=== PATIENT | male | born 1955 | race African-American/Black ===

== ENCOUNTER 2017-10-27 08:31 | Emergency (ER) | payer OTHER ==
[2017-10-27 08:51] LABS: ADD MAN DIFF? NO
[2017-10-27 08:54] LABS: BASO # 0.1 x10^3/uL (0.0-0.2); BASO % 1 % (0-3); EOS # 0.2 x10^3/uL (0.0-0.7); EOS % 3 % (0-3); HEMATOCRIT 30.5 % (39.0-53.0); HEMOGLOBIN 9.8 g/dL (13.0-17.5); LYMPH # 1.1 x10^3/uL (1.0-4.8); LYMPH % 21 % (24-48); MEAN CORPUSCULAR HEMOGLOBIN 20 pg (25-35); MEAN CORPUSCULAR HGB CONC 32 g/dL (31-37); MEAN CORPUSCULAR VOLUME 63 fL (79-100); MONO # 0.8 x10^3/uL (0.0-1.1); MONO % 15 % (0-9); NEUT # 3.1 x10^3uL (1.8-7.7); NEUT % 60 % (31-73); PLATELET COUNT 51 x10^3/uL (140-400); RED BLOOD COUNT 4.83 x10^6/uL (4.30-5.70); RED CELL DISTRIBUTION WIDTH 22.9 % (11.5-14.5); WHITE BLOOD COUNT 5.1 x10^3/uL (4.0-11.0)
[2017-10-27 09:05] LABS: ANION GAP 9 (6-14); BLOOD UREA NITROGEN 10 mg/dL (8-26); CALCIUM 9.3 mg/dL (8.5-10.1); CARBON DIOXIDE 25 mmol/L (21-32); CHLORIDE 100 mmol/L (98-107); CREATININE 0.9 mg/dL (0.7-1.3); GFR 103.5; GLUCOSE 356 mg/dL (70-99); SODIUM 134 mmol/L (136-145)
[2017-10-27 09:10] LABS: ALBUMIN 2.6 g/dL (3.4-5.0); ALK PHOS 183 U/L (46-116); ALT (SGPT) 74 U/L (16-63); AST (SGOT) 71 U/L (15-37); BARBITURATES NEG (NEG); BENZODIAZEPINES NEG (NEG); CANNABINOIDS POS (NEG); COCAINE POS (NEG); DIRECT BILIRUBIN 0.6 mg/dL (0.0-0.2); LIPASE 452 U/L (73-393); MAGNESIUM 1.9 mg/dL (1.8-2.4); METHADONE NEG (NEG); OPIATES NEG (NEG); PHENCYCLIDINE NEG (NEG); TOTAL PROTEIN 7.7 g/dL (6.4-8.2)
[2017-10-27 09:14] LABS: TROPONINI < 0.017 ng/mL (0.000-0.055)
[2017-10-27 09:16] LABS: BACTERIA,URINE FEW /HPF (0-FEW); BILIRUBIN,URINE NEGATIVE (NEG); CLARITY,URINE CLOUDY; COLOR,URINE YELLOW; GLUCOSE,URINE >=1000 mg/dL (NEG); NITRITE,URINE NEGATIVE (NEG); PH,URINE 6.5; PROTEIN,URINE NEGATIVE (NEG-TRACE); RBC,URINE OCC /HPF (0-2); SQUAMOUS EPITHELIAL CELL,UR FEW /LPF
[2017-10-27 09:16] LABS: THYROID STIM HORMONE (TSH) 1.837 uIU/mL (0.358-3.74)
[2017-10-27 09:19] LABS: NT-PRO BNP 35 pg/mL (0-124)
[2017-10-27 09:19] LABS: CKMB INDEX 1.3 % (0-4); CKMB MASS 3.6 ng/mL (0.0-3.6); CREATINE KINASE 284 U/L (39-308)
[2017-10-27 09:29] LABS: AMPHETAMINE/METHAMPHETAMINE NEG (NEG); ETHANOL, URINE NEG (NEG)
[2017-10-27] MEDS: AZITHROMYCIN 250 MG TABLET. PO ×2 (11:01)
[2017-10-27 11:18] LABS: PLT ESTIMATE DECREASED (ADEQUATE)
[2017-10-27 11:23] LABS: ANISOCYTOSIS MARKED; MICROCYTOSIS MARKED; POIKILOCYTOSIS PRESENT; POLYCHROMASIA MOD
[2017-10-27 11:24] LABS: OVALOCYTES PRESENT; SPHEROCYTES OCC; TARGET CELLS MANY; TEAR DROP CELLS PRESENT
[2017-10-27 11:25] LABS: SCHISTOCYTES FEW
== END 2017-10-27 11:08 | disposition home or self-care (01) ==
LOC: ER 08:31
DX: J20.9 Acute bronchitis, unspecified (principal); F12.10 Cannabis abuse, uncomplicated; F14.10 Cocaine abuse, uncomplicated; E11.9 Type 2 diabetes mellitus without complications; Z86.19 Personal history of other infectious and parasitic diseases; Z88.8 Allergy status to other drugs, medicaments and biological substances
CPT/HCPCS: 36415; 71045; 80048; 80076; 80307; 81001; 82553; 83690; 83735; 83880; 84443; 84484; 85025; 93005; 99285-25; Q0144

== ENCOUNTER 2018-04-22 13:19 | Emergency (ER) | payer OTHER ==
[~2018-04-22] VITALS: Ht 185.4 cm; Wt 145.1 kg
[~2018-04-22 13:19] MED LIST: AMLO5TAB2 PO; AZIT250T6 PO; BACL10TA PO; FERR325T14 PO; FURO20TA3 PO; GABA-586 PO; GUAI600T47 PO; HYDR-971 PO; INSU100I17 SQ; INSU100I18 SQ; LACT10SO PO; LOSA25TA4 PO; Lactulose PO; MORP30TA83 PO; OMEP20CA9 PO; ONDA4TAB10 SL; ONDA8TAB14 PO; PANT40TA3 PO; PRED20TA PO; PROAIR HFA8.5 GM INH; PROP10TA PO; RISP2TAB3 PO; SERT100T8 PO; SILD100T PO; SPIR25TA5 PO; TRAM50TA PO; TRAZ-85 PO; TRIA1TAB5 PO
[2018-04-22] MEDS ORDERED: oxyCODONE IR 5 MG TABLET PO ONE (13:30)
[2018-04-22] MEDS ORDERED: diazePAM 5 MG TABLET PO ONE (13:30)
--- NOTE | 2018-04-22 13:38 | PHYS DOC ---
Past Medical History Past Medical History: Anxiety, Cancer, COPD, Depression, Diabetes-Type II, Schizophrenia Additional Past Medical Histor: hepatitis c, panic attacks, encephalopathy Past Surgical History: Other Additional Past Surgical Histo: "BACK" SURGERY Alcohol Use: Heavy Drug Use: Marijuana Adult General Chief Complaint Chief Complaint: BACK PAIN - NO INJURY HPI HPI Patient is a 62-year-old male who presents to the emergency department for evaluation. He states on Saturday he began experiencing a flare of his chronic lower back pain, which worsened over the past few days. He denies any numbness or incontinence, or any definite injury. He has not had any fevers or chills. He does have a history of hepatitis C and cirrhosis. He did have a CT scan of his abdomen done at this facility this past January which was negative for any abdominal aortic aneurysms. He has not had any abdominal pain, nausea, or vomiting. Unfortunately, he continues to drink alcohol and states he did drink some last night. He does have a faint odor of alcohol detectable on his breath. Palpation of his back and movement seem to worsen his symptoms. There are no alleviating factors to his symptoms. Review of Systems Review of Systems Constitutional: Denies fever or chills [] Eyes: Denies change in visual acuity, redness, or eye pain [] HENT: Denies nasal congestion or sore throat [] Respiratory: Denies cough or shortness of breath [] Cardiovascular:The patient denies any shortness of breath, chest pain, palpitations, or orthopnea [] GI: Denies abdominal pain, nausea, vomiting, bloody stools or diarrhea [] : Denies dysuria or hematuria [] Musculoskeletal: Denies neck pain or joint pain [] Integument: Denies rash or skin lesions [] Neurologic: Denies headache, focal weakness or sensory changes [] Endocrine: Denies polyuria or polydipsia [] All other systems were reviewed and found to be within normal limits, except as documented in this note. Current Medications Current Medications Current Medications Medications (Trade) Dose Ordered Sig/Mauricio Start Time Stop Time Status Last Admin Dose Admin Diazepam (Valium) 5 mg 1X ONCE 04/22/18 13:30 04/22/18 13:31 DC 04/22/18 13:44 5 MG Oxycodone HCl (Roxicodone) 5 mg 1X ONCE 04/22/18 13:30 04/22/18 13:31 DC 04/22/18 13:44 5 MG Allergies Allergies Allergies Coded Allergies Type Severity Reaction Last Updated Verified Beta-Blockers (Beta-Adrenergic Bloc Allergy Severe Anaphylaxis, but takes Propranolol at home 05/31/16 Yes Physical Exam Physical Exam PHYSICAL EXAM: CONSTITUTIONAL: Well developed, well nourished. There is a faint odor of alcohol detectable on the patient's breath. HEAD: normocephalic, atraumatic EENT: PERRL, EOMI. there is mild nystagmus present on lateral gaze. Conjunctivae normal color, sclerae non-icteric; moist mucous membranes. NECK: Supple, non-tender; no meningismus. LUNGS: Lungs CTA, breathing even and unlabored. Normal air movement. HEART: Regular rate and rhythm, no murmur CHEST: No deformity; non-tender ABDOMEN: The abdomen is soft, and non-tender, no masses or bruits. EXTREM: Normal ROM; no deformity, no calf tenderness. Normal pulses palpable in all extremities. There is no pedal edema. SKIN: No rash; no diaphoresis NEURO: Alert; normal speech and cognition; CN's grossly intact; strength grossly intact without focal deficit. There is no foot drop. There is no definite motor weakness although there is diminished motor effort of the lower extremity secondary to lower back pain. Patellar reflexes are symmetrically absent. There is no perineal anesthesia. BACK: No CVA TTP. There is tenderness to palpation diffusely to the lower lumbar spine, both midline and paraspinal. Current Patient Data Vital Signs Vital Signs Date Time Temp Pulse Resp B/P (MAP) Pulse Ox O2 Delivery O2 Flow Rate FiO2 04/22/18 13:44 16 93 Room Air 04/22/18 13:20 98.3 74 95/59 (71) 98.3 Lab Values Laboratory Tests Test 04/22/18 13:30 04/22/18 13:53 04/22/18 14:38 Urine Collection Type Unknown Urine Color Yellow Urine Clarity Clear Urine pH 6.5 Urine Specific [place] 1.015 Urine Protein Negative mg/dL (NEG-TRACE) Urine Glucose (UA) 500 mg/dL (NEG) Urine Ketones (Stick) Negative mg/dL (NEG) Urine Blood Small (NEG) Urine Nitrite Negative (NEG) Urine Bilirubin Negative (NEG) Urine Urobilinogen Dipstick 1.0 mg/dL (0.2 mg/dL) Urine Leukocyte Esterase Moderate (NEG) Urine RBC 1-2 /HPF (0-2) Urine WBC 11-20 /HPF (0-4) Urine Squamous Epithelial Cells Few /LPF Urine Bacteria Many /HPF (0-FEW) Urine Mucus Slight /LPF Urine Opiates Screen Neg (NEG) Urine Methadone Screen Neg (NEG) Urine Barbiturates Neg (NEG) Urine Phencyclidine Screen Neg (NEG) Urine Amphetamine/Methamphetamine Neg (NEG) Urine Benzodiazepines Screen Neg (NEG) Urine Cocaine Screen Neg (NEG) Urine Cannabinoids Screen Pos (NEG) Urine Ethyl Alcohol Pos (NEG) White Blood Count 5.2 x10^3/uL (4.0-11.0) Red Blood Count 5.51 x10^6/uL (4.30-5.70) Hemoglobin 9.7 g/dL (13.0-17.5) L Hematocrit 31.8 % (39.0-53.0) L Mean Corpuscular Volume 58 fL (79-100) L Mean Corpuscular Hemoglobin 18 pg (25-35) L Mean Corpuscular Hemoglobin Concent 31 g/dL (31-37) Red Cell Distribution Width 26.2 % (11.5-14.5) H Platelet Count 75 x10^3/uL (140-400) L Neutrophils (%) (Auto) 66 % (31-73) Lymphocytes (%) (Auto) 16 % (24-48) L Monocytes (%) (Auto) 15 % (0-9) H Eosinophils (%) (Auto) 1 % (0-3) Basophils (%) (Auto) 1 % (0-3) Neutrophils # (Auto) 3.5 x10^3uL (1.8-7.7) Lymphocytes # (Auto) 0.8 x10^3/uL (1.0-4.8) L Monocytes # (Auto) 0.8 x10^3/uL (0.0-1.1) Eosinophils # (Auto) 0.1 x10^3/uL (0.0-0.7) Basophils # (Auto) 0.0 x10^3/uL (0.0-0.2) Platelet Estimate Decreased (ADEQUATE) Polychromasia Slight Hypochromasia Marked Poikilocytosis Mod Anisocytosis Marked Microcytosis Marked Target Cells Few Ovalocytes Mod Schistocytes Mod Sodium Level 136 mmol/L (136-145) Potassium Level 4.7 mmol/L (3.5-5.1) Chloride Level 101 mmol/L (98-107) Carbon Dioxide Level 26 mmol/L (21-32) Anion Gap 9 (6-14) Blood Urea Nitrogen 11 mg/dL (8-26) Creatinine 0.7 mg/dL (0.7-1.3) Estimated GFR (Cockcroft-Gault) 138.3 BUN/Creatinine Ratio 16 (6-20) Glucose Level 309 mg/dL (70-99) H Calcium Level 8.5 mg/dL (8.5-10.1) Magnesium Level 1.6 mg/dL (1.8-2.4) L Total Bilirubin 1.1 mg/dL (0.2-1.0) H Aspartate Amino Transferase (AST) 99 U/L (15-37) H Alanine Aminotransferase (ALT) 70 U/L (16-63) H Alkaline Phosphatase 198 U/L (46-116) H Troponin I Quantitative < 0.017 ng/mL (0.000-0.055) AC-Pxf-Z-Type Natriuretic Peptide 68 pg/mL (0-124) Total Protein 8.1 g/dL (6.4-8.2) Albumin 2.7 g/dL (3.4-5.0) L Albumin/Globulin Ratio 0.5 (1.0-1.7) L Lipase 418 U/L (73-393) H Ethyl Alcohol Level 122 mg/dL (0-10) H Ammonia 82 mcmol/L (11-34) H Laboratory Tests 04/22/18 13:53 Laboratory Tests 04/22/18 13:53 EKG EKG [Normal sinus rhythm a rate of 74 bpm, normal intervals, left axis deviation, there are no acute ischemic ST/T changes.] Radiology/Procedures Radiology/Procedures [] Course & Med Decision Making Course & Med Decision Making Pertinent Labs and Imaging studies reviewed. (See chart for details) [4:25 PM: The patient's condition remains stable. He is able to ambulate in the emergency department, and is stable on his feet. I discussed test results with the patient. His labs are similar or improved compared to his prior levels. His ammonia is down from his recent values. I discussed importance of continued compliance with his outpatient medications, and he'll be given a limited supply of pain medication until he is able to follow up with his primary care provider. Return precautions were discussed in detail.] Arpan Disclaimer Arpan Disclaimer This electronic medical record was generated, in whole or in part, using a voice recognition dictation system. Departure Departure Impression: Primary Impression: Low back pain Additional Impressions: Cirrhosis of liver Alcohol abuse Diabetes UTI (urinary tract infection) Disposition: HOME, SELF-CARE Condition: STABLE Referrals: UNKNOWN PCP NAME (PCP) Patient Instructions: Alcohol Intoxication, Back Pain, Adult, Chronic Alcoholism, Cirrhosis, Type 2 Diabetes Mellitus, Adult, Urinary Tract Infection Scripts Oxycodone Hcl (OXYCODONE HCL) 5 Mg Capsule 1 CAP PO QID, #10 CAP 0 Refills Prov: ABDOULAYE SCHAEFER MD 04/22/18 Cephalexin (KEFLEX) 500 Mg Capsule 500 MG PO QID for 5 Days, #20 CAP Prov: ABDOULAYE SCHAEFER MD 04/22/18 Problem Qualifiers ABDOULAYE SCHAEFER MD Apr 22, 2018 13:37
[2018-04-22 13:47] LABS: BILIRUBIN,URINE NEGATIVE (NEG); CLARITY,URINE CLEAR; COLOR,URINE YELLOW; NITRITE,URINE NEGATIVE (NEG); PH,URINE 6.5; PROTEIN,URINE NEGATIVE (NEG-TRACE)
[2018-04-22 13:49] LABS: BARBITURATES NEG (NEG); BENZODIAZEPINES NEG (NEG); CANNABINOIDS POS (NEG); COCAINE NEG (NEG); METHADONE NEG (NEG); OPIATES NEG (NEG); PHENCYCLIDINE NEG (NEG)
[2018-04-22 13:50] LABS: AMPHETAMINE/METHAMPHETAMINE NEG (NEG)
[2018-04-22 13:55] LABS: BACTERIA,URINE MANY /HPF (0-FEW)
[2018-04-22 13:56] LABS: SQUAMOUS EPITHELIAL CELL,UR FEW /LPF
[2018-04-22 14:09] LABS: BASO % 1 % (0-3); EOS # 0.1 x10^3/uL (0.0-0.7); EOS % 1 % (0-3); HEMATOCRIT 31.8 % (39.0-53.0); HEMOGLOBIN 9.7 g/dL (13.0-17.5); LYMPH # 0.8 x10^3/uL (1.0-4.8); LYMPH % 16 % (24-48); MEAN CORPUSCULAR HEMOGLOBIN 18 pg (25-35); MEAN CORPUSCULAR HGB CONC 31 g/dL (31-37); MEAN CORPUSCULAR VOLUME 58 fL (79-100); MONO # 0.8 x10^3/uL (0.0-1.1); MONO % 15 % (0-9); NEUT # 3.5 x10^3uL (1.8-7.7); NEUT % 66 % (31-73); PLATELET COUNT 75 x10^3/uL (140-400); RED BLOOD COUNT 5.51 x10^6/uL (4.30-5.70); RED CELL DISTRIBUTION WIDTH 26.2 % (11.5-14.5); WHITE BLOOD COUNT 5.2 x10^3/uL (4.0-11.0)
[2018-04-22 14:21] LABS: CALCIUM 8.5 mg/dL (8.5-10.1); CREATININE 0.7 mg/dL (0.7-1.3); GFR 138.3
[2018-04-22 14:26] LABS: ALBUMIN 2.7 g/dL (3.4-5.0); ALBUMIN/GLOBULIN RATIO 0.5 (1.0-1.7); MAGNESIUM 1.6 mg/dL (1.8-2.4); TOTAL BILIRUBIN 1.1 mg/dL (0.2-1.0); TOTAL PROTEIN 8.1 g/dL (6.4-8.2)
[2018-04-22 14:31] LABS: POTASSIUM 4.7 mmol/L (3.5-5.1)
--- NOTE | 2018-04-22 14:35 | EKG ---
[facility] [address] [place] [address] Test Date: 2018-04-22 Test Time: 13:43:49 Pat Name: JAYLEN DENNIS Department: Room: Gender: M [employer]: : 1955 Requested By: ABDOULAYE SCHAEFER Order Number: [id number] Reading MD: Lucas Shukla MD Measurements Intervals [place] Rate: 73 P: 28 OR: 148 QRS: -21 QRSD: 94 T: 14 QT: 430 QTc: 477 Interpretive Statements SINUS RHYTHM NON-SPECIFIC ST/T CHANGES Electronically Signed On 04-24-2018 15:20:29 CDT by Lucas Shukla MD
[2018-04-22 14:53] LABS: ANISOCYTOSIS MARKED; HYPOCHROMIA MARKED; MICROCYTOSIS MARKED; OVALOCYTES MOD; PLT ESTIMATE DECREASED (ADEQUATE); POIKILOCYTOSIS MOD; POLYCHROMASIA SLIGHT; SCHISTOCYTES MOD; TARGET CELLS FEW
[2018-04-22 16:14] VITALS: BP 121/80
[2018-04-22] MEDS ORDERED: CEPH-264 PO (16:35)
[2018-04-22] MEDS ORDERED: OXYC5CAP PO (16:35)
== END 2018-04-22 17:00 | disposition home or self-care (01) ==
LOC: ER 13:19
DX: N39.0 Urinary tract infection, site not specified (principal); G89.29 Other chronic pain; M54.5 Low back pain; K74.60 Unspecified cirrhosis of liver; E11.9 Type 2 diabetes mellitus without complications; F10.10 Alcohol abuse, uncomplicated; F41.9 Anxiety disorder, unspecified; J44.9 Chronic obstructive pulmonary disease, unspecified; F32.9 Major depressive disorder, single episode, unspecified; Y90.9 Presence of alcohol in blood, level not specified; Z98.890 Other specified postprocedural states; Z88.8 Allergy status to other drugs, medicaments and biological substances
CPT/HCPCS: 36415; 80053; 80307; 81001; 82140; 83690; 83735; 83880; 84484; 85025; 87086; 93005; 99285; G0480; G0479

== ENCOUNTER 2018-05-28 21:23 | Emergency (ER) | payer OTHER ==
[~2018-05-28] VITALS: Ht 185.4 cm; Wt 145.1 kg
[~2018-05-28 21:23] MED LIST changes: -AMLO5TAB2 PO; +AMLO5TAB7 PO; +CEPH-264 PO; -LOSA25TA4 PO; +LOSA25TA5 PO; +OXYC5CAP PO
[2018-05-29] MEDS ORDERED: CHLO15MO2 PO (00:23)
[2018-05-29] MEDS ORDERED: AMOX1TAB61 PO (00:23)
[2018-05-29] MEDS ORDERED: ERYT1OIN6 OP (00:23)
--- NOTE | 2018-05-29 00:23 | PHYS DOC ---
Past Medical History Past Medical History: Anxiety, Cancer, COPD, Depression, Diabetes-Type II, Schizophrenia Additional Past Medical Histor: hepatitis c, panic attacks, encephalopathy Past Surgical History: Other Additional Past Surgical Histo: "BACK" SURGERY Alcohol Use: Occasionally Drug Use: Marijuana Adult General Chief Complaint Chief Complaint: FACE PROBLEM HPI HPI Patient is a 62 year old [f__sex] who presents with [] Review of Systems Review of Systems Constitutional: Denies fever or chills [] Eyes: Denies change in visual acuity, redness, or eye pain [] HENT: Denies nasal congestion or sore throat [] Respiratory: Denies cough or shortness of breath [] Cardiovascular: No additional information not addressed in HPI [] GI: Denies abdominal pain, nausea, vomiting, bloody stools or diarrhea [] : Denies dysuria or hematuria [] Musculoskeletal: Denies back pain or joint pain [] Integument: Denies rash or skin lesions [] Neurologic: Denies headache, focal weakness or sensory changes [] Endocrine: Denies polyuria or polydipsia [] All other systems were reviewed and found to be within normal limits, except as documented in this note. Allergies Allergies Allergies Coded Allergies Type Severity Reaction Last Updated Verified Beta-Blockers (Beta-Adrenergic Bloc Allergy Severe Anaphylaxis, but takes Propranolol at home 05/31/16 Yes Physical Exam Physical Exam Constitutional: Well developed, well nourished, no acute distress, non-toxic appearance. [] HENT: Normocephalic, atraumatic, bilateral external ears normal, oropharynx moist, no oral exudates, nose normal. [] Eyes: PERRLA, EOMI, conjunctiva normal, no discharge. [] Neck: Normal range of motion, no tenderness, supple, no stridor. [] Cardiovascular:Heart rate regular rhythm, no murmur [] Lungs & Thorax: Bilateral breath sounds clear to auscultation [] Abdomen: Bowel sounds normal, soft, no tenderness, no masses, no pulsatile masses. [] Skin: Warm, dry, no erythema, no rash. [] Back: No tenderness, no CVA tenderness. [] Extremities: No tenderness, no cyanosis, no clubbing, ROM intact, no edema. [] Neurologic: Alert and oriented X 3, normal motor function, normal sensory function, no focal deficits noted. [] Psychologic: Affect normal, judgement normal, mood normal. [] Current Patient Data Vital Signs Vital Signs Date Time Temp Pulse Resp B/P (MAP) Pulse Ox O2 Delivery O2 Flow Rate FiO2 05/28/18 23:35 98.1 63 16 125/77 (93) 99 Room Air 98.1 EKG EKG [] Radiology/Procedures Radiology/Procedures [] Course & Med Decision Making Course & Med Decision Making Pertinent Labs and Imaging studies reviewed. (See chart for details) [] Dragon Disclaimer Dragon Disclaimer This electronic medical record was generated, in whole or in part, using a voice recognition dictation system. Departure Departure Impression: Primary Impression: Conjunctivitis Additional Impressions: Sinusitis Dental caries Disposition: HOME, SELF-CARE Condition: STABLE Referrals: UNKNOWN PCP NAME (PCP) Patient Instructions: Conjunctivitis (Viral and Bacterial), Dental Caries-Brief , Sinusitis, [id number] Scripts Chlorhexidine Gluconate (PERIDEX) 15 Ml Mouthwash 15 ML PO BID for 10 Days, #946 ML Prov: LA SHIELDS DO 05/29/18 Erythromycin Base (Erythromycin) 1 Gm Oint...g. 0.5 INCH OP QID for 5 Days, MISC Apply to both eyes Prov: LA SHIELDS DO 05/29/18 Amoxicillin/Potassium Clav (AUGMENTIN 875-125 TABLET) 1 Each Tablet 1 TAB PO BID for 10 Days, #20 TAB Prov: LA SHIELDS DO 05/29/18 Problem Qualifiers Primary Impression: Conjunctivitis Conjunctivitis type: acute Acute conjunctivitis type: unspecified Laterality: right Qualified Codes: H10.31 - Unspecified acute conjunctivitis , right eye Additional Impressions: Sinusitis Sinusitis location: maxillary Chronicity: acute Recurrence: not specified as recurrent Qualified Codes: J01.00 - Acute maxillary sinusitis, unspecified LA SHIELDS DO May 29, 2018 00:23
[2018-05-29] MEDS ORDERED: ERYTHROMYCIN 0.5% OPHTH OINTMENT 1GM TUBE. OU ONE (00:30)
[2018-05-29] MEDS ORDERED: AMOXICILLIN/K CLAV 875/125MG TABLET. PO ONE (00:30)
[2018-05-29 00:38] VITALS: BP 110/71
== END 2018-05-29 01:00 | disposition home or self-care (01) ==
LOC: ER 21:23
DX: J01.00 Acute maxillary sinusitis, unspecified (principal); H10.31 Unspecified acute conjunctivitis, right eye; K02.9 Dental caries, unspecified; J44.9 Chronic obstructive pulmonary disease, unspecified; F20.9 Schizophrenia, unspecified; E11.9 Type 2 diabetes mellitus without complications; Z91.041 Radiographic dye allergy status
CPT/HCPCS: 99284